=== PATIENT | male | born 1990 | race Two or more races ===

== ENCOUNTER 2020-08-11 05:28 | Emergency (ER) | payer OTHER ==
[~2020-08-11] VITALS: Ht 165.1 cm; Wt 54.4 kg
[2020-08-11 05:30] VITALS: BP 132/82
== END 2020-08-11 07:18 ==
LOC: ER 05:28
DX: Z04.1 Encounter for examination and observation following transport accident (principal); V89.2XXA Person injured in unspecified motor-vehicle accident, traffic, initial encounter; Y93.89 Activity, other specified; Y92.89 Other specified places as the place of occurrence of the external cause; Y99.8 Other external cause status